=== PATIENT | female | born 1985 | race Asian ===

== ENCOUNTER 2016-09-22 12:00 | Inpatient (IN) | payer OTHER ==
[2016-09-29 07:46] VITALS: BMI 31.1
[2016-09-29] MEDS ORDERED: OXYTOCIN IN LR 500 ML IV PRN (08:09)
[2016-09-29] MEDS ORDERED: OXYTOCIN IN LR 500 ML IV ONE ×2 (08:09→08:27)
[2016-09-29] MEDS ORDERED: LACTATED RINGERS 1,000 ML IV SCH (08:15)
[2016-09-29] MEDS ORDERED: IV START KIT ONE (08:26)
[2016-09-29] MEDS ORDERED: LIDOCAINE Viscous 2% 15 ML UDCUP ONE (08:27)
[2016-09-29] MEDS ORDERED: PUMP TUBING ONE (08:27)
[2016-09-29] MEDS ORDERED: LACTATED RINGERS 1,000 ML ONE (08:27)
[2016-09-29] MEDS ORDERED: MINERAL OIL 25 ML BOT ONE (08:27)
[2016-09-29] MEDS ORDERED: LIDOCAINE 1% (PRES FREE) 30 ML VIAL ONE (08:27)
[2016-09-29] MEDS ORDERED: OXYTOCIN 10 UNITS/ML VIAL ONE (08:27)
--- NOTE | 2016-09-29 08:30 | PCMAN ---
OB Admission Note - History : 3 Term: 2 : 0 Abortions (S&E): 0 Livin EDC:: 09/22/16 Gestational Age (weeks): 41 Days (#/7): 0 Admit Cervical Dilation:: 3 Admit Cervical Effacement (%):: 50 Admit Station:: -3 Admit Presentaton:: Vertex Membrane Status: Intact Contractions: Yes Contraction Frequency:: 5 Heart Rate:: 125 Status:: Category 1, moderate variability, accels present, no decels EFW:: 7 lb Summary of Course:: Uncomplicated 31 yo at 41 weeks admitted for postdates induction. GBS neg. History of precipitous labor. States contractions come and go. Denies bleeding or leakage of fluid, reports good movement. Tdap 07/05/2016 Flu vaccine 04/16/16 PMHx: neg PSHx: neg SocHx: denies tob, etoh or illicit drugs Allergies: NKDA OBHx: 2011 40 weeks 7 lb 2 oz 2012 40 weeks 7 lb (precipitous delivery in bathroom) - Labs Blood Type: O (+) positive Hct/Hgb:: 36.0 Rubella Status: Immune GBS Status: Negative Abnormal Labs: None Other Labs:: Antibody neg GC/CT neg Pap normal HIV NR HBSAg NR 1 hr 142 3 hr 94/147/104/99 RPR NR - Review of Systems Denies CISNEROS, visual changes, RUQ pain. Intermittent Ctx, no LOF or VB. - Physical Exam General: Afebrile, No Acute Distress Psych/Mental Status: Mood/Affect Appropriate Neurological: Grossly Intact, Normal Speech HEENT: Atraumatic, Mucous membr. moist/pink Lungs: Clear to Auscultation Bilaterally, Normal Air Movement Cardiovascular: Regular Rate and Rhythm, Normal S1, Normal S2 Genitourinary: Normal Female Genitalia Extremities: Full ROM Skin: Normal Color, Warm, Dry - Problems (1) Post-dates Status: Acute Code: O48.0Assessment/Plan: Admitted for induction of labor GBS negative Cervix favorable Will start with Pitocin and plan on AROM
[2016-09-29 09:15] LABS: HEMATOCRIT 36.5 % (37.0-47.0); HEMOGLOBIN 12.3 gm/l (12.0-16.0); MEAN CELL VOLUME 91.5 fl (81.0-99.0); MEAN CORPUSCULAR HEMOGLOBIN 30.8 pg (27.0-31.0); MEAN CORPUSCULAR HGB CONC 33.7 g/dl (33.0-37.0); RED CELL DISTRIBUTION WIDTH 13.5 % (11.5-14.5)
[2016-09-29] MEDS ORDERED: FENTANYL 100 MCG/2 ML VIAL IV PRN (12:18)
--- NOTE | 2016-09-29 12:20 | PDOC36 ---
Provider Note Subject: MD Interval Note Note: Patient feeling contractions, mostly in the back. Pit at 8. AROM - clear. SVE 5/ /-2 FHT: 145, moderate variability, accels present, no decels TOCO: Q 2.5 mins A/P: 31 yo at 41 wks, post dates IOL. GBS neg - s/p AROM, on pitocin - desires IV pain meds - Expectant management
[2016-09-29] MEDS ORDERED: LANOLIN 50 APPLIC/7G TUBE TP PRN (14:23)
[2016-09-29] MEDS ORDERED: DOCUSATE SODIUM 100 MG CAPSULE PO PRN (14:23)
[2016-09-29] MEDS ORDERED: BENZOCAINE/MENTHOL 60 APPLIC/BOT TP PRN (14:23)
--- NOTE | 2016-09-29 14:31 | PCMDEL ---
Delivery Note - Labor 1st stage (hr/min):: 1 hr 57 min 2nd stage (hr/min):: 0 min 3rd stage (hr/min):: 4 min Total (hr/min):: 1 hr 57 min Pushed (hr/min):: 5 min - Delivery Delivery (Date): 09/29/16 Delivery (Time): 14:09 Infant Gender: Female Presentation: Cephalic Position: OA Umbilical Cord: 3 Vessel Delayed Cord Clamping:: < 1-2 min 1 Minute Total: 9 5 Minute Total: 9 Placenta:: 14:13 EBL:: 200 Perineum:: intact Suture:: none Anesthesia/Meds:: Pitocin for induction Length ROM:: 1 hr 57 min Comments:: of NB girl, apgars 9/9, OA position. Infant handed to mom, cord clamped and cut after 1 min delay. Cord blood obtained. Placenta delivered and grossly normal. Perineum intact, no lacerations. EBL 200 mL.
[2016-09-29] MEDS: IBUPROFEN 800 MG TABLET PO PRN ×2 (16:26→22:25)
[2016-09-29] MEDS: HYDROCODONE/ACETAMINOPHEN 5/325MG TABLET PO PRN (23:31)
[2016-09-30] MEDS: HYDROCODONE/ACETAMINOPHEN 5/325MG TABLET PO PRN ×5 (03:30→21:24)
[2016-09-30] MEDS: IBUPROFEN 800 MG TABLET PO PRN ×4 (04:31→23:43)
[2016-09-30 06:57] LABS: HEMATOCRIT 33.3 % (37.0-47.0); HEMOGLOBIN 11.2 gm/l (12.0-16.0)
--- NOTE | 2016-09-30 08:43 | PDOC44 ---
- Subjective Day: 1 Reports Flatus, Reports Pain Tolerable, Reports , Reports Lochia Light - Objective Temp Pulse Resp BP Pulse Ox 97.2 F 57 16 92/52 09/30/16 07:50 09/30/16 07:50 09/30/16 07:50 09/30/16 07:50 Lab Results 09/30/16 09/29/16 06:20 09:05 WBC 6.8 RBC 3.99 L Hgb 11.2 L 12.3 Hct 33.3 L 36.5 L Plt Count 194 Current Medications Generic Name Dose Route Start Last Admin Trade Name Freq PRN Reason Stop Dose Admin Acetaminophen/Hydrocodone Bitart 1 - 2 tab 09/29/16 14:23 09/30/16 07:47 [place] 5/325 PO 2 tab Q4H PRN Administration Pain (Moderate) Benzocaine/Menthol 1 applic 09/29/16 14:23 Dermoplast TP PRN PRN Patient Comfort Docusate Sodium 100 mg 09/29/16 14:23 09/30/16 07:47 Colace PO 100 mg DAILY PRN Administration Comfort Emollient Ointment 1 applic 09/29/16 14:23 09/30/16 02:03 Wpe-U-Hkozky TP 1 applic PRN PRN Administration sore nipples Ibuprofen 800 mg 09/29/16 14:23 09/30/16 04:31 Motrin PO 800 mg Q6H PRN Administration Pain (Mild) Sodium Chloride 10 ml 09/29/16 08:09 09/29/16 16:26 Normal Saline 10ml Flush IV 10 ml PRN PRN Administration IV Flush - Physical Exam General: Afebrile, No Acute Distress Psych/Mental Status: Mood/Affect Appropriate, Bonding Well Neurological: Alert, Oriented x 4 Lungs: Clear to Auscultation Bilaterally Cardiovascular: Regular Rate and Rhythm Breast: Nipples Intact Fundus: Firm, Midline Extremities: Full ROM, No Edema, No Tenderness Skin: Normal Color, Warm, Dry, Intact, No Rash - Problems:Assessment/Plan (1) (normal spontaneous vaginal delivery) Status: AcuteAssessment/Plan: Nl exam and vitals. Some difficulties with cramping pain while BF and with BF. -adequate pain control - support -likely d/c tomorrow Disposition: Stable, Anticipate DC Home Tomorrow
[2016-10-01] MEDS: HYDROCODONE/ACETAMINOPHEN 5/325MG TABLET PO PRN ×3 (02:27→10:38)
[2016-10-01] MEDS: IBUPROFEN 800 MG TABLET PO PRN (06:23)
[2016-10-01 08:28] VITALS: BP 89/53
--- NOTE | 2016-10-01 09:19 | PDOC39B ---
Hospital Course: ADMIT DATE: 09/29/16 DISCHARGE DATE: 10/01/16 ADMISSION DIAGNOSES: Post Dates Induction of Labor PROCEDURES/EVENTS: HOSPITAL COURSE: 31 year old G3 now [id number] admitted at 41 weeks gestation for induction of labor with a faborable cervix. Pitocin was started and she progressed from 0800 to 2 pm. She delivered a viable girl with Apgars of 9/9 on 09/29/16 at 14:09. No lacerations. course was uncomplicated. By the day of discharge the patient was ambulating, eating, voiding, and passing flatus without difficulty. Pain controlled and lochia appropriate. She is . - Physical Exam Vital Signs: Temp Pulse Resp BP Pulse Ox 97.8 F 55 55 89/53 10/01/16 08:00 10/01/16 08:00 10/01/16 08:00 10/01/16 08:00 General: Afebrile Psych/Mental Status: Bonding Well Neurological: Oriented x 4 Lungs: Clear to Auscultation Bilaterally Cardiovascular: Regular Rate and Rhythm Fundus: Firm, Below Umbilicus Skin: Warm, Dry - Discharge Diagnosis (1) (normal spontaneous vaginal delivery) Status: AcuteAssessment/Plan: Nl exam and vitals. Some difficulties with cramping pain while BF and with BF, now resolved -adequate pain control - support -DC home today - Discharge Plan Condition: Stable Disposition: Home Prescriptions: Docusate Sodium [COLACE 100 MG CAPSULE (SHF)] 100 mg PO DAILY PRN #60 PRN Reason: Comfort Ibuprofen [IBUPROFEN 800 MG TABLET (SHF)] 800 mg PO Q6H PRN #60 PRN Reason: Pain (Mild) Sennosides [Senna] 8.6 mg PO BID PRN #45 tablet PRN Reason: Constipation Follow-Up: Meg Simms MD [Primary Care Provider] - In 6 weeks
== END 2016-10-01 12:00 | disposition home or self-care (01) | DRG 775 ==
LOC: EDSTATUS 17:04 → FBC 09-29 06:48
PROVIDERS: ADMIT Family Medicine; ATTEND Family Medicine
PROC: 10E0XZZ Delivery of Products of Conception, External Approach (ICD-10-PCS; principal; 2016-09-29)
PROC: 3E033VJ Introduction of Other Hormone into Peripheral Vein, Percutaneous Approach (ICD-10-PCS; 2016-09-29)
PROC: 10907ZC Drainage of Amniotic Fluid, Therapeutic from Products of Conception, Via Natural or Artificial Opening (ICD-10-PCS; 2016-09-29)
DX: O48.0 Post-term pregnancy (principal); Z3A.41 41 weeks gestation of pregnancy; Z37.0 Single live birth